=== PATIENT | female | born 2005 | race Caucasian/White ===

== ENCOUNTER 2024-01-30 14:56 | Emergency (ER) | payer BC ==
[~2024-01-30] VITALS: Ht 154.9 cm; Wt 70.8 kg
[2024-01-30] MEDS: diphenhydrAMINE HCL 50 MG/ML VIAL IV ONE (16:00)
[2024-01-30] MEDS ORDERED: diphenhydrAMINE HCL 50 MG/ML VIAL ONE (16:05)
[2024-01-30] MEDS ORDERED: PROCHLORPERAZINE EDISYLATE 10 MG/2 ML VIAL ONE (16:06)
[2024-01-30] MEDS ORDERED: ACETAMINOPHEN ES 500 MG TABLET ONE (16:06)
[2024-01-30] MEDS: PROCHLORPERAZINE EDISYLATE 10 MG/2 ML VIAL IVP STA (16:09)
[2024-01-30] MEDS: ACETAMINOPHEN ES 500 MG TABLET PO ONE (16:09)
[2024-01-30] MEDS: IV NS 0.9% 1,000 ML BAG IV ONE (16:09)
[2024-01-30 16:25] LABS: BASOPHILS # (AUTO) 0.1 K/uL (0.0-0.2); BASOPHILS % (AUTO) 0.4 % (0.0-2.0); EOSINOPHILS # (AUTO) 0.1 K/uL (0.0-0.7); EOSINOPHILS % (AUTO) 1.1 % (0.0-6.0); HEMATOCRIT 37 % (33-45); HEMOGLOBIN 12.1 g/dL (11.5-14.8); LYMPHOCYTES # (AUTO) 3.1 K/uL (0.8-4.8); LYMPHOCYTES % (AUTO) 25.5 % (20.0-44.0); MEAN CORPUSCULAR HEMOGLOBIN 28 PG (26.0-33.0); MEAN CORPUSCULAR HGB CONC 33 g/dl (31.0-36.0); MEAN CORPUSCULAR VOLUME 85 fL (82-100); MONOCYTES # (AUTO) 0.7 K/uL (0.1-1.30); MONOCYTES % (AUTO) 5.6 % (2.0-12.0); NEUTROPHILS # (AUTO) 8.2 K/uL (1.8-8.9); NEUTROPHILS % (AUTO) 67.4 % (43.0-81.0); PLATELET COUNT (AUTO) 318 K/uL (150-450); RED BLOOD CELL COUNT(AUTO) 4.33 MIL/uL (4.0-5.2); RED CELL DISTRIBUTION WIDTH 14.8 % (11.5-15.0); WHITE BLOOD COUNT (AUTO) 12.2 K/uL (4.3-11.0)
[2024-01-30 16:36] LABS: CALCIUM, SERUM 9.4 mg/dL (8.5-10.1); CREATININE 0.8 mg/dL (0.6-1.3)
[2024-01-30 17:07] VITALS: BP 118/71; TEMP 98.4; O2SAT 99
== END 2024-01-30 17:07 | disposition home or self-care (01) ==
LOC: ER 16:30
DX: G44.209 Tension-type headache, unspecified, not intractable (principal); G43.909 Migraine, unspecified, not intractable, without status migrainosus; R03.0 Elevated blood-pressure reading, without diagnosis of hypertension; J45.909 Unspecified asthma, uncomplicated
CPT/HCPCS: 99284; 96374; 96361; 96375; 85025; 80048; 36415; J0780; J1200; J7030